=== PATIENT | female | born 1990 | race Caucasian/White ===

== ENCOUNTER → 2017-06-16 | Outpatient (CLI) | payer MEDICAID ==
[2016-08-29 19:40] VITALS: BP 134/80
[~2017-06-16] MED LIST: IBUP600T16 PO; TRAM-48 PO
--- NOTE | 2017-06-16 12:38 | RAD ---
EXAM: Bilateral knees, 2 views. HISTORY: Chronic bilateral knee pain and crepitus. COMPARISON: None. FINDINGS: No fractures are identified bilaterally. The joint spaces and alignment of both knees are maintained. There is no joint effusion bilaterally. IMPRESSION: 1. No effusion or clear degenerative change bilaterally.
== END | disposition home or self-care (01) ==
LOC: DXRADRC 10:22
PROVIDERS: ATTEND Nurse Practitioner Family
DX: M23.8X2 Other internal derangements of left knee (principal); M23.8X1 Other internal derangements of right knee
CPT/HCPCS: 73560

== ENCOUNTER 2018-01-30 12:13 | Emergency (ER) | payer SELFPAY ==
[~2018-01-30] VITALS: Ht 177.8 cm; Wt 90.7 kg
[2018-01-30 12:20] VITALS: BP 137/82
[2018-01-30] MEDS ORDERED: ALPR0.5T PO (13:06)
--- NOTE | 2018-01-30 13:07 | PHYS DOC ---
Past History Past Medical History: Anxiety, Bipolar, Other Past Surgical History: , Tonsillectomy, Other Smoking: Non-smoker Alcohol Use: None Drug Use: None Adult General Chief Complaint Chief Complaint: ANXIETY/PANIC ATTACK HPI HPI 27-year-old female patient with history of anxiety states she had one episode of panic attack yesterday that became better and today had more panic attacks with palpitation, shortness of breath, dizziness and nausea. Patient denies suicidal and homicidal ideation and states she doesn't take medication for anxiety. Patient want's work excuse for today. Review of Systems Review of Systems Constitutional: Denies fever or chills [] Eyes: Denies change in visual acuity, redness, or eye pain [] HENT: Denies nasal congestion or sore throat [] Respiratory: Denies cough or shortness of breath [] Cardiovascular: No additional information not addressed in HPI [] GI: Denies abdominal pain, nausea, vomiting, bloody stools or diarrhea [] : Denies dysuria or hematuria [] Musculoskeletal: Denies back pain or joint pain [] Integument: Denies rash or skin lesions [] Neurologic: Denies headache, focal weakness or sensory changes [] Endocrine: Denies polyuria or polydipsia [] All other systems were reviewed and found to be within normal limits, except as documented in this note. Allergies Allergies Allergies Coded Allergies Type Severity Reaction Last Updated Verified lamotrigine Allergy Intermediate 01/30/18 Yes Physical Exam Physical Exam Constitutional: Well developed, well nourished, mild distress, non-toxic appearance. [] HENT: Normocephalic, atraumatic, bilateral external ears normal, oropharynx moist, no oral exudates, nose normal. [] Eyes: PERRLA, EOMI, conjunctiva normal, no discharge. [] Neck: Normal range of motion, no tenderness, supple, no stridor. [] Cardiovascular:Heart rate regular rhythm, no murmur [] Lungs & Thorax: Bilateral breath sounds clear to auscultation [] Neurologic: Alert and oriented X 3, normal motor function, normal sensory function, no focal deficits noted. [] Psychologic: anxious, judgement normal, mood normal. [] Current Patient Data Vital Signs Vital Signs Date Time Temp Pulse Resp B/P (MAP) Pulse Ox O2 Delivery O2 Flow Rate FiO2 01/30/18 12:20 98.8 107 16 100 Room Air EKG EKG [] Radiology/Procedures Radiology/Procedures [] Course & Med Decision Making Course & Med Decision Making discharge: I've spoken with the patient and/or caregivers. I've explained the patient's condition, diagnosis and treatment plan based on information available to me at this time. I've answered the patient's and/or caregivers questions and addressed any concerns. The patient and/or caregivers have a good understanding the patient's diagnosis, condition and treatment plan as can be expected at this point. Vital signs have been stabilized. The patient's condition is stable for discharge from the emergency department. The patient will pursue further outpatient evaluation with her primary care provider or other designated consulting physician as outlined in the discharge instructions. Patient and/or caregivers are agreeable to this plan of care and follow-up instructions have been explained in detail. The patient and/or caregivers have received these instructions in written format and expressed understanding of these discharge instructions. The patient and her caregivers are aware that if any significant change in condition or worsening of symptoms should prompt him to immediately return to this of the closest emergency department. If an emergent department is not readily available I would encourage him to call 911. Dragon Disclaimer Dragon Disclaimer This electronic medical record was generated, in whole or in part, using a voice recognition dictation system. Departure Departure: Impression: Primary Impression: Anxiety attack Additional Impressions: Tobacco abuse Tobacco abuse counseling Disposition: HOME, SELF-CARE (At 1304) Condition: STABLE Referrals: BINDU ADAME (PCP) Patient Instructions: Anxiety and Panic Attacks, Smoking Cessation, Tips For Success Additional Instructions: Quit smoking Follow-up with your primary care physician in 3-5 days Return to ER if not getting better Scripts Alprazolam (XANAX) 0.5 Mg Tablet 1 TAB PO BID Y for ANXIETY / AGITATION, #10 TAB Prov: JENNIFER NATION MD 01/30/18 Problem Qualifiers JENNIFER NATION MD Jan 30, 2018 13:07
== END 2018-01-30 13:17 | disposition home or self-care (01) ==
LOC: ER 12:13
DX: F41.1 Generalized anxiety disorder (principal); F31.9 Bipolar disorder, unspecified; Z72.0 Tobacco use; Z71.6 Tobacco abuse counseling; Z88.8 Allergy status to other drugs, medicaments and biological substances
CPT/HCPCS: 99284

== ENCOUNTER → 2018-08-28 | Outpatient (CLI) | payer OTHER ==
[~2018-08-28] MED LIST changes: +ALPR0.5T PO
--- NOTE | 2018-08-28 09:25 | RAD ---
EXAM: Right foot, 3 views. HISTORY: Blunt trauma. COMPARISON: None. FINDINGS: 3 views of the right foot are obtained. There is no fracture, dislocation or subluxation. IMPRESSION: No acute osseous finding. Electronically signed by: Isabel Boogie MD (08/28/2018 9:22 AM) [place] [id number]
== END | disposition home or self-care (01) ==
LOC: DXRAD 08:32
PROVIDERS: ATTEND Physician Assistant Medical
DX: S99.921D Unspecified injury of right foot, subsequent encounter (principal); X58.XXXD Exposure to other specified factors, subsequent encounter
CPT/HCPCS: 73630

== ENCOUNTER 2021-07-21 21:08 | Emergency (ER) | payer OTHER ==
[~2021-07-21] VITALS: Ht 157.5 cm; Wt 111.0 kg
[2021-07-21 21:08] VITALS: BP 150/85
[2021-07-21] MEDS ORDERED: MECLIZINE 12.5 MG TABLET. PO ONE (21:45)
--- NOTE | 2021-07-21 21:45 | PHYS DOC ---
Past History Past Medical History: Anxiety, Bipolar, Other (OUMAR ANTON APRN) Past Surgical History: , Tonsillectomy, Other (OUMAR ANTON APRN) Smoking: Non-smoker Alcohol Use: None Drug Use: None (OUMAR ANTON APRN) General Adult EDM: Chief Complaint: ANXIETY/PANIC ATTACK HPI: HPI: Patient is a 30-year-old female who presents to the ER for multiple complaints. She reports that she has history of anxiety and had an anxiety attack at 1730 and then had another one while working outside with her horse. Patient takes Xanax as needed. She took a Xanax at 1729 and 2049. Patient was recently put on BuSpar and Ozempic by her PCP. Patient is reporting lightheadedness. Lightheadedness is worse with eye movement and head movement. She denies any nausea, vomiting, shortness of breath, chest pain, cough, fevers. (OUMAR ANTON APRN) Review of Systems: Review of Systems: 14 body systems of the review of systems have been reviewed. See HPI for pertinent positive and negative responses, otherwise all other systems are negative, nonpertinent or noncontributory (OUMAR ANTON APRN) Allergies: Allergies: Allergies Coded Allergies Type Severity Reaction Last Updated Verified lamotrigine Allergy Intermediate 01/30/18 Yes (OUMAR ANTON APRN) Physical Exam: PE: Constitutional: Well developed, well nourished, no acute distress, non-toxic appearance. [] HENT: Normocephalic, atraumatic, bilateral external ears normal, oropharynx moist, no oral exudates, nose normal. [] Eyes: PERRLA, EOMI, 5 mm pupils bilaterally, conjunctiva normal, no discharge. [] Neck: Normal range of motion, no tenderness, supple, no stridor. [] Cardiovascular:Heart rate regular rhythm, no murmur [] Lungs & Thorax: Bilateral breath sounds clear to auscultation [] Abdomen: Bowel sounds normal, soft, no tenderness, no masses, no pulsatile masses. [] Skin: Warm, dry, no erythema, no rash. [] Back: Normal range of motion Extremities: No tenderness, no cyanosis, no clubbing, ROM intact, no edema. [] Neurologic: Alert and oriented X 3, normal motor function, normal sensory function, no focal deficits noted. [] Psychologic: Affect normal, judgement normal, mood normal. [] (OUMAR ANTON APRN) EKG: EKG: [] (OUMAR ANTON APRN) EK EKG with limb lead discordance 2233 sinus rhythm 70 bpm, no axis deviations, normal intervals, Q-wave lead III T wave inversion lead III, no ST elevation or ST depression, no active chest pain (BINDU RAMÍREZ DO) Radiology/Procedures: Radiology/Procedures: [] (OUMAR ANTON APRN) Heart Score: C/O Chest Pain: No Risk Factors: Risk Factors: DM, Current or recent (<one month) smoker, HTN, HLP, family history of CAD, obesity. Risk Scores: Score 0 - 3: 2.5% MACE over next 6 weeks - Discharge Home Score 4 - 6: 20.3% MACE over next 6 weeks - Admit for Clinical Observation Score 7 - 10: 72.7% MACE over next 6 weeks - Early Invasive Strategies (OUMAR ANTON APRN) C/O Chest Pain: No (BINDU RAMÍREZ DO) Course & Med Decision Making: Course & Med Decision Making Pertinent Labs and Imaging studies reviewed. (See chart for details) Patient is a 30-year-old female who presents to the ER for lightheadedness that is worse with eye and head movements. Orthostatic vital signs performed today were negative. Work-up in the ER consisted of EKG, blood work, urinalysis. Patient had a negative HINTS exam. Patient treated with fluids and Antivert. I discussed patients case with Dr. Ramírez and she will assume patient care at this time 2200. (OUMAR ANTON APRN) Course & Med Decision Making I received signout by my midlevel at shift change. Patient on reevaluation states " I was having an anxiety attack and that medicine he gave me worked." Patient was prescribed Atarax in the ED. Labs are unremarkable except for nonspecific elevation of AST 40. Patient is currently on her menses. Patient is not a danger to herself or others, denies any homicidal or suicidal ideations. Will discharge home with strict ED return precautions were given for suicidal homicidal ideations, chest pain, syncope neurologic deficits. Encouraged urgent outpatient follow-up with PMD and psychiatry for definitive management. Life-threatening processes were considered but are low suspicion at this time, given history, physical exam and ED workup. Pt was educated on all prescription medications and adverse effects. All patient's questions were answered and pt was stable at time of discharge. Life/limb-threatening differential includes but is not limited to, end organ damage/sepsis, trauma/abuse/neglect, neurologic deficit, alcohol/drug ingestion, toxidrome, suicidal/homicidal ideations plans or attempts, psychosis or mental illness resulting in self neglect and inability to care for self. I have spoken with the patient and/or caregivers. I explained the patient's condition, diagnoses and treatment plan based on the information available to me at this time. I have answered the patient and/or caregiver's questions and addressed any concerns. The patient and/or caregivers have a good understanding of patient's diagnosis, condition and treatment plan as can be expected at this point. Vital signs have been stable. Patient's condition is stable and appropriate for discharge from the emergency department. Patient will pursue further outpatient evaluation with primary care physician or other designated or consulting physician as outlined in the discharge instructions. The patient and/or caregivers are agreeable to this plan of care and follow-up instructions have been explained in detail. The patient and/or caregivers have received these instructions in written form and have expressed an understanding of the discharge instructions. The patient and/or caregivers are aware that any significant change of condition or worsening of symptoms should prompt immediate return to this or the closest emergency department or call to 911. (BINDU RAMÍREZ DO) Dragon Disclaimer: Dragon Disclaimer: This electronic medical record was generated, in whole or in part, using a voice recognition dictation system. (OUMAR ANTON APRN) Departure Departure: Impression: Primary Impression: Anxiety Disposition: HOME / SELF CARE / HOMELESS Condition: STABLE Referrals: BINDU ADAME (PCP) [facility]-Dr. Crain or Dr. Meng [facility] [address], [address] [place] [address] OR [facility]-Dr. Bullock 720 Patient Instructions: Anxiety and Panic Attacks Additional Instructions: FOLLOW UP WITH PSYCHIATRY: For definitive management of anxiety [facility] [address] [place] [address] [facility] [address] [place] [address] [facility] [address] , [address] [address] EMERGENCY DEPARTMENT GENERAL DISCHARGE INSTRUCTIONS Thank you for coming to [facility] (ED) today and trusting us with you care. We trust that you had a positivie experience in our Emergency Department. If you wish to speak to the department management, you may call the director at [phone]. YOUR FOLLOW UP INSTRUCTIONS ARE FOLLOWS: 1. Do you have a private Doctor? If you do not have a private doctor, please ask for a resource list of physicians or clinics that may be able to assist you with follow up care. 2. The Emergency Physician has interpreted your x-rays. The X-Ray specialist will also review them. If there is a change in the findings, you will be notified in 48 hours when at all possible. 3. A lab test or culture has been done, your results will be reviewed and you will be notified if you need a change in treatment. ADDITIONAL INSTRUCTIONS AND INFORMATION: 1. Your care today has been supervised by a physician who is specially trained in emergency care. Many problems require more than one evaluation for a complete diagnosis and treatment. We recommend that you schedule your follow up appointment as recommended to ensure complete treatment of you illness or injury. If you are unable to obtain follow up care and continue to have a problem, or if your condition worsens, we recommend that you return to the ED. 2. We are not able to safely determine your condition over the phone nor are we able to give sound medical advice over the phone. For these safety reasons, if you call for medical advice we will ask you to come to the ED for further evaluation. 3. If you have any questions regarding these discharge instructions please call the ED at [phone]. SAFETY INFORMATION: In the interest of safety, wellness, and injury prevention; we encourage you to wear your sealbelt, if you smoke; quite smoking, and we encourage family to use a protective helmet for bicycling and other sporting events that present an increased risk for head injury. IF YOUR SYMPTOMS WORSEN OR NEW SYMPTOMS DEVELOP, OR YOU HAVE CONCERNS ABOUT YOUR CONDITION; OR IF YOUR CONDITION WORSENS WHILE YOU ARE WAITING FOR YOUR FOLLOW UP APPOINTMENT; EITHER CONTACT YOUR PRIMARY CARE DOCTOR, THE PHYSICIAN WHOSE NAME AND NUMBER YOU WERE GIVEN, OR RETURN TO THE ED IMMEDIATELY. Scripts Hydroxyzine Hcl (HYDROXYZINE HCL) 25 Mg Tablet 1 TAB PO TID for anxiety, #21 TAB Prov: BINDU RAMÍREZ DO 07/21/21 OUMAR ANTON APRN Jul 21, 2021 21:45 BINDU RAMÍREZ DO Jul 21, 2021 23:15
[2021-07-21 21:56] LABS: BASO # 0.1 x10^3/uL (0.0-0.2); BASO % 1 % (0-3); EOS # 0.1 x10^3/uL (0.0-0.7); EOS % 1 % (0-3); HEMATOCRIT 38.8 % (36.0-47.0); HEMOGLOBIN 13.4 g/dL (12.0-15.5); LYMPH # 3.3 x10^3/uL (1.0-4.8); LYMPH % 31 % (24-48); MEAN CORPUSCULAR HEMOGLOBIN 30 pg (25-35); MEAN CORPUSCULAR HGB CONC 35 g/dL (31-37); MEAN CORPUSCULAR VOLUME 86 fL (79-100); MONO # 0.6 x10^3/uL (0.0-1.1); MONO % 6 % (0-9); NEUT # 6.8 x10^3uL (1.8-7.7); NEUT % 62 % (31-73); PLATELET COUNT 168 x10^3/uL (140-400); RED BLOOD COUNT 4.53 x10^6/uL (3.50-5.40); RED CELL DISTRIBUTION WIDTH 12.9 % (11.5-14.5); WHITE BLOOD COUNT 10.9 x10^3/uL (4.0-11.0)
[2021-07-21] MEDS ORDERED: IV NORMAL SALINE 1,000ML 1,000 ML IV ONE (22:00)
[2021-07-21 22:04] LABS: CALCIUM 9.5 mg/dL (8.5-10.1); CREATININE 0.7 mg/dL (0.6-1.0); GFR 98.9; POTASSIUM 3.6 mmol/L (3.5-5.1)
[2021-07-21 22:10] LABS: ALBUMIN 3.8 g/dL (3.4-5.0); ALBUMIN/GLOBULIN RATIO 1.1 (1.0-1.7); BILIRUBIN,URINE NEG (NEG); CLARITY,URINE CLEAR; COLOR,URINE YELLOW; GLUCOSE,URINE NEG (NEG); TOTAL BILIRUBIN 0.3 mg/dL (0.2-1.0); TOTAL PROTEIN 7.4 g/dL (6.4-8.2)
[2021-07-21 22:11] LABS: BACTERIA,URINE 0 /HPF (0-FEW); NITRITE,URINE NEG (NEG); RBC,URINE OCC /HPF (0-2); SQUAMOUS EPITHELIAL CELL,UR FEW /LPF; UROBILINOGEN,URINE 0.2 mg/dL (0.2 mg/dL); WBC,URINE OCC /HPF (0-4)
[2021-07-21] MEDS ORDERED: HYDR25TA PO (23:34)
--- NOTE | 2021-07-22 03:44 | EKG ---
[address] [address] Test Date: 2021-07-21 Test Time: 22:33:06 Pat Name: ANGEL PASCAL Department: Room: Gender: F Audit Mgr: INNA : 1990 Requested By: BINDU RAÍMREZ Order Number: [id number] Reading MD: Measurements Intervals [place] Rate: 79 P: 45 OK: 172 QRS: 54 QRSD: 104 T: 7 QT: 396 QTc: 455 Interpretive Statements SINUS RHYTHM NO SPECIFIC ECG ABNORMALITIES RI6.02 Compared to ECG 07/21/2021 22:32:10 Supraventricular rhythm no longer present T-wave abnormality no longer present Prolonged QT interval no longer present
--- NOTE | 2021-07-22 03:53 | EKG ---
[address] [address] Test Date: 2021-07-21 Test Time: 21:44:17 Pat Name: ANGEL PASCAL Department: Room: Gender: F Inspector Experimental Assembly: SONNY : 1990 Requested By: OUMAR ANTON Order Number: [id number] Reading MD: Measurements Intervals [place] Rate: 80 P: 221 [place]: 128 QRS: 125 QRSD: 104 T: 180 QT: 376 QTc: 437 Interpretive Statements SINUS RHYTHM ABNORMAL RIGHT AXIS DEVIATION CONSIDER RIGHT VENTRICULAR HYPERTROPHY QRS(T) CONTOUR ABNORMALITY CONSIDER INFERIOR MYOCARDIAL DAMAGE ST & T ABNORMALITY, CONSIDER HIGH LATERAL ISCHEMIA OR LEFT VENTRICULAR STRAIN ABNORMAL ECG RI6.02 No previous ECG available for comparison
== END 2021-07-22 00:01 | disposition home or self-care (01) ==
LOC: ER 21:08
DX: F41.9 Anxiety disorder, unspecified (principal); F31.9 Bipolar disorder, unspecified; Z88.8 Allergy status to other drugs, medicaments and biological substances
CPT/HCPCS: 36415; 80053; 81001; 81025; 84484; 85025; 93005; 96360; 96361; 99284; J7030